=== PATIENT | male | born 1945 | race Caucasian/White ===

== ENCOUNTER 2016-09-21 09:39 | Emergency (ER) | payer MEDICARE ==
[~2016-09-21] VITALS: Ht 180.3 cm; Wt 96.0 kg
[~2016-09-21 09:39] MED LIST: ATOR20TA15 PO; CART240C PO; XARE20TA PO; ZOLP10TA3 PO
[2016-09-21 09:51] VITALS: BP 148/97; PULSE 73; RESP 16; TEMP 98.3; O2SAT 94
[2016-09-21] MEDS ORDERED: HYDR12.57 PO (10:55)
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
[2016-09-21] MEDS ORDERED: CEPH-460 PO (11:12)
== END 2016-09-21 11:20 | disposition home or self-care (01) ==
LOC: PHEFT 09:39
DX: S80.212A Abrasion, left knee, initial encounter (principal); I48.91 Unspecified atrial fibrillation; I10 Essential (primary) hypertension; Z79.01 Long term (current) use of anticoagulants
CPT/HCPCS: 99283

== ENCOUNTER 2017-03-30 10:47 | Day surgery (SDC) | payer MEDICARE ==
[~2017-03-30 10:47] MED LIST changes: -CART240C PO; +DILT-64 PO
[2017-03-30] MEDS ORDERED: LACTATED RINGER'S 1000 ML IV PRN (11:15)
[2017-03-30] MEDS ORDERED: POVIDONE IODINE 5% (ANTISEPSIS KIT) 4 APPLICATIONS EACH NARE PRN (11:15)
[2017-03-30] MEDS ORDERED: INSULIN HUMAN REGULAR 1,000 UNITS/10 ML VIAL SQ PRN (11:15)
[2017-03-30] MEDS ORDERED: SODIUM CHLORID 0.9% 500 ML IV PRN (11:15)
[2017-03-30] MEDS ORDERED: CHLORHEXIDINE GLUCONATE 2 % 1 PACK (2 CLOTHS) TOPICAL PRN (11:15)
[2017-03-30] MEDS ORDERED: METOPROLOL TARTRATE 25 MG TAB PO PRN (11:15)
[2017-03-30] MEDS ORDERED: MULT400T PO (11:34)
[2017-03-30] MEDS ORDERED: LOSA25TA PO (11:34)
[2017-03-30] MEDS ORDERED: VITA100018 PO (11:34)
--- NOTE | 2017-03-31 08:54 | MR ---
cc: VIMAL EATON DATE 03/30/2017 INDICATIONS Atrial flutter with rapid ventricular response, history of atrial fibrillation. PROCEDURE PERFORMED DC cardioversion PROCEDURE After the patient was sedated by anesthesia, A 52 x 54 delivered which converted the patient to atrial fibrillation. 200 joule Biphasic shock then converted the patient to sinus rhythm. The patient remained stable and was discharged home in stable condition. DIAGNOSIS Successful cardioversion of atrial fibrillation. DISPOSITION Mr. Raza will continue on his current medical program including anticoagulation. I will see him back for followup in our office after discharge. MD RACHEL Myers/LIZA /1:01 PM /8:45 AM
--- NOTE | 2017-03-31 21:07 | EKG ---
Date Performed: 03/30/2017 Time Performed: 11:06:58 PTAGE: 71 years EKG: Atrial flutter Extensive ST-T changes may be due to myocardial ischemia Abnormal ECG PREVIOUS TRACING : 02/05/2017 12.20 Compared to prior tracing no significant change DOCTOR: Suman Shin Interpretating Date/Time 03/31/2017 20:56:26
== END 2017-03-30 14:05 | disposition home or self-care (01) ==
LOC: HDOC 10:47 → HDIC 10:48 → HDOC 14:05
PROVIDERS: ATTEND Internal Medicine Interventional Cardiology
DX: I48.0 Paroxysmal atrial fibrillation (principal); I10 Essential (primary) hypertension; E78.5 Hyperlipidemia, unspecified; I34.0 Nonrheumatic mitral (valve) insufficiency; Z86.73 Personal history of transient ischemic attack (TIA), and cerebral infarction without residual deficits; Z79.01 Long term (current) use of anticoagulants; Z79.899 Other long term (current) drug therapy
CPT/HCPCS: 92960; 93005